=== PATIENT | male | born 1945 | race Caucasian/White ===

== ENCOUNTER 2021-10-12 13:55 | Day surgery (SDC) | payer OTHER ==
[2021-10-06 13:57] LABS: BASOPHILS % (AUTO) 0.3 % (0-1); EOSINOPHILS % (AUTO) 0.6 % (0-6); HEMATOCRIT 45.5 % (42.0-52.0); HEMOGLOBIN 15.3 g/dl (14.0-17.9); LYMPHOCYTES # (AUTO) 0.7 X10'3 (1.1-4.8); LYMPHOCYTES % (AUTO) 9.2 % (21-51); MEAN CORPUSCULAR HGB CONC 33.6 g/dL (33.0-36.5); MEAN CORPUSCULAR VOLUME 92.3 FL (78-98); MEAN PLATELET VOLUME 7.6 FL (7.4-10.4); MONOCYTES # (AUTO) 0.4 X10'3 (0-0.9); MONOCYTES % (AUTO) 4.9 % (2-12); NEUTROPHILS # (AUTO) 6.4 X10'3 (1.8-7.7); PLATELET COUNT 274 X10'3 (140-440); RED BLOOD COUNT 4.93 X10'6 (4.70-6.10); RED CELL DISTRIBUTION WIDTH 12.6 % (11.5-14.5); WHITE BLOOD COUNT 7.5 X10'3 (4.5-11.0)
[2021-10-06 14:08] LABS: ANION GAP 8 (8-16); APTT 27 SECONDS (22-32); BLOOD UREA NITROGEN 24 MG/DL (7-18); BUN/CREATININE RATIO 30.4 (5.4-32.0); CALCIUM 8.8 MG/DL (8.5-10.1); CHLORIDE 104 MMOL/L (99-107); CREATININE 0.79 MG/DL (0.60-1.10); GLUCOSE 139 MG/DL (70-104); POTASSIUM 4.2 MMOL/L (3.5-5.1); SODIUM 142 MMOL/L (135-145); TOTAL CARBON DIOXIDE 30.3 MMOL/L (24-32); eGFR > 90 ML/MIN
[2021-10-12] VITALS (10 sets, daily range): BP systolic 129–154; BP diastolic 53–89
[~2021-10-12] VITALS: Ht 188 cm; Wt 109.6 kg
[2021-10-12] MEDS ORDERED: diphenhydrAMINE 25mg capsule PO PRN (14:20)
[2021-10-12] MEDS ORDERED: normal saline 1,000 ML IV SCH (14:20)
[2021-10-12] MEDS ORDERED: LORazepam 0.5 MG tablet PO PRN (14:20)
[2021-10-12] MEDS ORDERED: glucose tab (14:55)
[2021-10-12] MEDS ORDERED: INSU100C10 SQ (14:55)
[2021-10-12] MEDS ORDERED: TEMA15CA5 PO (14:55)
[2021-10-12] MEDS ORDERED: EZET10TA6 PO (14:55)
[2021-10-12] MEDS ORDERED: TERBINAFINE 1% (14:55)
[2021-10-12] MEDS ORDERED: CHOL100046 PO (14:55)
[2021-10-12] MEDS ORDERED: OMEG-82 PO (14:55)
[2021-10-12] MEDS ORDERED: ASPI-611 PO (14:55)
[2021-10-12] MEDS ORDERED: INSU100V9 SQ (14:55)
[2021-10-12] MEDS ORDERED: FLO0.4C PO (14:55)
[2021-10-12] MEDS ORDERED: BACL-11 PO (14:55)
[2021-10-12] MEDS ORDERED: ROSU20TA2 PO (14:55)
[2021-10-12] MEDS ORDERED: verapamil 2.5 mg/ml inj IV ONE (14:58)
[2021-10-12] MEDS ORDERED: LIDOcaine 1% (10mg/ml)w/preservative injection 20ml MDV ONE (14:58)
[2021-10-12] MEDS ORDERED: iohexol 350 MG/ML 50ML vial IV ONE (14:59)
[2021-10-12] MEDS ORDERED: heparin 1,000unit/ml 10ml vial 10 ML ONE ×2 (14:59→16:10)
[2021-10-12] MEDS ORDERED: iohexol 350MG/ML 100ml bottle IV ONE ×2 (14:59→16:11)
[2021-10-12] MEDS ORDERED: nitroGLYCERIN-Tridil 50MG/D5W 250 ML IV ONE (15:00)
[2021-10-12] MEDS ORDERED: LIDOcaine/PRILOcaine 5gm cream TP ONE (15:10)
[2021-10-12] MEDS ORDERED: midazolam 1 mg/ML 2ml injection ONE (15:32)
[2021-10-12] MEDS ORDERED: fentaNYL/PF 50MCG/1 ML 2ML syringe ONE (15:32)
[2021-10-12] MEDS ORDERED: clopidogrel 300mg tablet ONE (16:22)
[2021-10-12] MEDS ORDERED: ondansetron/PF 4mg/2ml inj IV PRN (16:50)
[2021-10-12] MEDS ORDERED: HYDROcodone/acetaminophen 5mg/325mg tablet PO PRN (16:50)
[2021-10-12] MEDS ORDERED: HYDROcodone/acetaminophen 10/325mg tab PO PRN (16:50)
[2021-10-12] MEDS ORDERED: proCHLORperazine 10 MG/2 ml inj IV PRN (16:50)
[2021-10-12] MEDS ORDERED: OXAZEpam 15mg capsule PO PRN (16:50)
== END 2021-10-12 19:30 | disposition home or self-care (01) ==
LOC: SSTAY O 13:55
PROVIDERS: ATTEND Internal Medicine Interventional Cardiology
DX: R94.39 Abnormal result of other cardiovascular function study (principal); R07.89 Other chest pain; I25.10 Atherosclerotic heart disease of native coronary artery without angina pectoris; I10 Essential (primary) hypertension; Z79.899 Other long term (current) drug therapy
CPT/HCPCS: 36415; 80048; 85025; 85610; 85730; 93005; 93458; 99152; 99153; C1751; C1769; C1874; C1894; C9600; J1644; J2250; J3010; J3490; J7030; Q0163; Q9967; A4620; A5120; C1725

== ENCOUNTER 2021-10-13 06:34 | Emergency (ER) | payer OTHER ==
[~2021-10-13] VITALS: Ht 188 cm; Wt 104.0 kg
[~2021-10-13 06:34] MED LIST: ASPI-611 PO; BACL-11 PO; CHOL100046 PO; EZET10TA6 PO; FLO0.4C PO; INSU100C10 SQ; INSU100V9 SQ; OMEG-82 PO; ROSU20TA2 PO; TEMA15CA5 PO; TERBINAFINE 1%; glucose tab
--- NOTE | 2021-10-13 07:15 | NUR ---
first contact with pt. presents to ed with one episode of bloody stool. pt reports hx of hemorrhoids. has been on blood thinners for stent procedure done yesterday in right radial. awaiting lab. no distress.
--- NOTE | 2021-10-13 07:38 | NUR ---
lab at bedside
[2021-10-13 08:29] LABS: BASOPHILS % (AUTO) 0.3 % (0-1); EOSINOPHILS # (AUTO) 0.1 X10'3 (0-0.9); EOSINOPHILS % (AUTO) 0.6 % (0-6); HEMATOCRIT 36.7 % (42.0-52.0); HEMOGLOBIN 12.3 g/dl (14.0-17.9); LYMPHOCYTES # (AUTO) 0.9 X10'3 (1.1-4.8); LYMPHOCYTES % (AUTO) 7.6 % (21-51); MEAN CORPUSCULAR HEMOGLOBIN 31.2 PG (27.0-31.0); MEAN CORPUSCULAR HGB CONC 33.6 g/dL (33.0-36.5); MEAN CORPUSCULAR VOLUME 92.9 FL (78-98); MEAN PLATELET VOLUME 8.1 FL (7.4-10.4); MONOCYTES # (AUTO) 0.6 X10'3 (0-0.9); MONOCYTES % (AUTO) 5.4 % (2-12); NEUTROPHILS # (AUTO) 10.1 X10'3 (1.8-7.7); NEUTROPHILS % (AUTO) 86.1 % (42-75); PLATELET COUNT 269 X10'3 (140-440); RED BLOOD COUNT 3.95 X10'6 (4.70-6.10); WHITE BLOOD COUNT 11.7 X10'3 (4.5-11.0)
[2021-10-13] MEDS ORDERED: normal saline 1000ML IV soln IVB ONE (09:00)
[2021-10-13] MEDS ORDERED: iohexol 300mg/ml 100ml inj. ONE (10:23)
--- NOTE | 2021-10-13 10:53 | NUR ---
returned from ct
--- NOTE | 2021-10-13 11:17 | NUR ---
spoke with director of cardiac cath lab, ok to remove pressure dressing from yesterday's procedure. removed coban, will cont to monitor closely for bleeding.
[2021-10-13 11:18] VITALS: BP 129/37
== END 2021-10-13 11:42 | disposition home or self-care (01) ==
LOC: ER 06:35
DX: K62.5 Hemorrhage of anus and rectum (principal); R42 Dizziness and giddiness; Z98.890 Other specified postprocedural states; Z79.82 Long term (current) use of aspirin; Z79.899 Other long term (current) drug therapy
CPT/HCPCS: 36415; 74177; 85025; 99285; J7030; Q9967